=== PATIENT | female | born 1990 | race Hispanic/Latino ===

== ENCOUNTER 2017-12-17 20:51 | Day surgery (SDC) | payer SELFPAY ==
[2017-12-17 21:24] VITALS: BMI 34.9
--- NOTE | 2017-12-17 22:02 | PDOC.LDHP ---
Labor and Delivery H&P Chief complaint: other (vaginal spotting) HPI: 27 yo at 34 week who presents with some vaginal spotting and blood tinged mucus. she has has some 1/10 bilateral lower abdominal pain. it is constant and does not come and go like a contraction. no loss of fluid. normal movement. no fever or dysuria. other than one episode of mucus, patient has had no vaginal discharge. Current gestational age (weeks): 34 (1 day) Due date: 01/27/18 Dating criteria: first trimester ultrasound Grav: 2 Para: 1 OB History Details: Patient has a hx of GERD treated with ranitidine. Current complications: none Abnormal US findings: No (posterior placenta. no indication of low lying) Social history: none - Physical Exam Vital signs reviewed and normal: yes General: NAD, resting Heart: RRR Lungs: CTAB Abdomen: gravid Extremeties: no edema FHT: category 1 (Normal rate, moderate variability, several accelerations, no decelerations) [place] contractions every: none - Vaginal Exam cm dilated: 0 (visually closed. no bleeding or discharge on speculum exam. ) - OB Labs Blood type: B RH: positive Antibody Screen: negative HIV: negative RPR: negative HEPSAg: negative 1 hour GCT: negative GBS: unknown Urine drug screen: not done Rubella: immune - Assessment 1. cervical spotting- no hx of continued bleeding and no blood seen at all on speculum exam. no significant discharge on hx or exam to suggest infection. NST was reactive and there were no contractions. Likely bleeding from benign irritation vs loss of mucus plug. 2. round ligament pain- contniue tylenol as needed FU in 1 week at [facility]. <Flakito To - Last Filed: 12/17/17 23:56> <Napoleon Garcia - Last Filed: 12/18/17 07:52> Allergies/Adverse Reactions: Allergies Allergy/AdvReac Type Severity Reaction Status Date / Time No Known Allergies Allergy Verified 12/17/17 21:38 Attending Addendum - Attending Addendum Date/Time: 12/18/17 2243 I personally evaluated the patient and discussed the management with Dr. Mcknight I agree with the History, Examination, Assessment and Plan documented above with any addition or exceptions noted below. <Napoleon Garcia - Last Filed: 12/18/17 07:52>
== END 2017-12-17 22:03 | disposition home or self-care (01) ==
LOC: L&D/OP 20:51
PROVIDERS: ATTEND Obstetrics & Gynecology
DX: O26.853 Spotting complicating pregnancy, third trimester (principal); O99.89 Other specified diseases and conditions complicating pregnancy, childbirth and the puerperium; K21.9 Gastro-esophageal reflux disease without esophagitis; R10.2 Pelvic and perineal pain; Z79.899 Other long term (current) drug therapy; Z3A.34 34 weeks gestation of pregnancy
CPT/HCPCS: 99282

== ENCOUNTER 2018-01-20 05:16 | Inpatient (IN) | payer MEDICAID, OTHER, SELFPAY ==
--- NOTE | 2018-01-19 20:54 | PDOC.LDHP ---
Labor and Delivery H&P Chief complaint: scheduled section HPI: 27 yo @ 39.0wks by an 8.6wk US presents for a PLTCS 2/2 hx of LGA in prior with a 4th degree laceration. Denies contractions, VB , LOF, discharge, dysuria, n/v today. Current gestational age (weeks): 39 Due date: 01/26/18 Dating criteria: first trimester ultrasound (2) Grav: 2 Para: 1 OB History Details: , post dates induction with LGA and complication of a 4th degree laceration Current complications: other (Anemia of ) Abnormal US findings: No ([place] 76.9% 2T) Past Medical History: none Current medications: pre- vitamins Previous surgical history: none Social history: none - Physical Exam Vital signs reviewed and normal: yes General: NAD Heart: RRR Lungs: CTAB Abdomen: gravid Extremeties: no edema FHT: category 1 - OB Labs Blood type: B RH: positive Antibody Screen: negative HIV: negative RPR: negative HEPSAg: negative 1 hour GCT: negative GBS: negative Rubella: immune - Assessment L&D Assessment: scheduled primary section 27 yo @ 39wks by 8.6wk US presents for scheduled PLTCS. - Plan Plan: to OR for section -: Plan- 1.)sIUP-admit to L&D for scheduled pLTCS. Hemagram prior to and 24 hours post ordered. Ancef ordered. Pt GBS negative. Spinal anesthesia planned. [place], motrin, tylenol prn pain after delivery. 2.)Hx of LGA infant: Current [place] 76.9%. 3.)Anemia of : continue po iron, will monitor H/H before and after cs. Will provide stool softener prn. <Shelby Aguilar - Last Filed: 01/20/18 10:26> <Mike Pires - Last Filed: 01/20/18 15:05> Allergies/Adverse Reactions: Allergies Allergy/AdvReac Type Severity Reaction Status Date / Time No Known Allergies Allergy Verified 01/20/18 06:01 Attending Addendum - Attending Addendum Date/Time: 01/20/18 8342 I personally evaluated the patient and discussed the management with Dr. Medrano. I agree with the History, Examination, Assessment and Plan documented above with any addition or exceptions noted below. Plan for elective primary C/S delivery is reasonable in light of prior complicated vaginal delivery with significant pelvic trauma. R/B/A discussed thoroughly and patient & partner verbalize understanding. <Mike Pires - Last Filed: 01/20/18 15:05>
[2018-01-20] MEDS ORDERED: CEFAZOLIN/Water 2 GM/20 ML SYRINGE SLOW IVP SCH (06:00)
[2018-01-20] MEDS ORDERED: Promethazine HCl 25 MG/ML VIAL IM PRN ×2 (06:09→09:16)
[2018-01-20 06:12] VITALS: BMI 36.7
[2018-01-20] MEDS ORDERED: Bicitra 30 ML UDCUP PO SCH (06:15)
[2018-01-20] MEDS: Lactated Ringer's 1,000 ML IV SCH ×4 (06:20→19:10)
[2018-01-20 06:44] LABS: Hemoglobin 9.9 g/dL (12.0-16.0); Mean Corpuscular HGB CONC 34.3 g/dL (32.0-36.0); Mean Corpuscular Hemoglobin 31.3 pg (27.0-31.0); Mean Corpuscular Volume 91.1 fL (78.0-98.0); Mean Platelet Volume 9.6 fL (7.4-10.4); Platelet Count 170 thou/uL (130-400); RBC Distribution Width 13.8 % (11.5-14.5); Red Blood Cell (RBC) Count 3.16 mill/uL (4.20-5.40); White Blood Cell (WBC) Count 7.9 thou/uL (4.8-10.8)
[2018-01-20 07:27] LABS: Hep B Surf Ag Non-Reactive S/CO (NonReactive); Syphilis Antibody Nonreactive (Nonreactive); Syphilis Antibody Index 0.04 S/CO (<1.00 Non-Reactive)
[2018-01-20] MEDS ORDERED: Morphine PF 1 MG/ML SYR ONE (07:28)
[2018-01-20] MEDS ORDERED: Bupivacaine 0.75% W/DEXTROSE 8.25% 2 ML AMP ONE ×2 (07:29)
[2018-01-20] MEDS ORDERED: Ketorolac Tromethamine 30 MG/ML VIAL ONE ×2 (07:29→14:12)
[2018-01-20] MEDS ORDERED: Lidocaine 1% PF 5 ML VIAL ONE (07:29)
[2018-01-20] MEDS ORDERED: Oxytocin 10 UNITS/ML VIAL ONE (07:29)
[2018-01-20] MEDS ORDERED: Ondansetron HCl/PF 4 MG/2 ML Vial ONE ×2 (07:29→14:12)
[2018-01-20] MEDS ORDERED: Atropine Sulfate 0.4 mg/1 ml Vial ONE ×2 (07:50→14:12)
[2018-01-20] MEDS ORDERED: ePHEDrine/0.9% NaCl/PF SYRINGE 50 mg/10 ml ONE ×2 (07:51→14:12)
[2018-01-20] MEDS ORDERED: Adacel (T-DAP) 0.5 ML VIAL IM ONE (09:03)
[2018-01-20] MEDS ORDERED: Acetaminophen 325 MG TAB PO PRN (09:03)
[2018-01-20] MEDS ORDERED: Lanolin Ointment 7 GM TUBE TOP PRN ×2 (09:03→13:53)
[2018-01-20] MEDS ORDERED: Naloxone HCl 0.4 mg/ml Vial IV PRN (09:16)
[2018-01-20] MEDS ORDERED: Eucerin (Mineral Oil/Petrolatum,White) 30 gm Jar TOP PRN (09:16)
[2018-01-20] MEDS ORDERED: HYDROmorphone 2 MG/ML VIAL SLOW IVP PRN (09:16)
[2018-01-20] MEDS ORDERED: Promethazine HCl 25 MG SUPP PR PRN (09:16)
[2018-01-20] MEDS ORDERED: diphenhydrAMINE 50 MG/ML VIAL IVP PRN (09:16)
[2018-01-20] MEDS ORDERED: Meperidine HCl/PF 25 MG/ML VIAL SLOW IVP PRN (09:16)
[2018-01-20] MEDS ORDERED: Ketorolac Tromethamine 30 MG/ML VIAL IVP PRN (09:16)
[2018-01-20] MEDS ORDERED: Naloxone HCl 0.4 mg/ml Vial IVP PRN ×2 (09:16)
[2018-01-20] MEDS ORDERED: Ondansetron HCl/PF 4 MG/2 ML Vial IVP PRN ×2 (09:16)
[2018-01-20] MEDS ORDERED: Ketorolac Tromethamine 30 MG/ML VIAL IVP SCH (09:30)
[2018-01-20] MEDS ORDERED: Communication Order-Pharmacy FS SCH (09:30)
--- NOTE | 2018-01-20 10:29 | PDOC.OPDEL ---
OB Operative/Delivery Note Delivery Dr/Surgeon: Jeff Medrano; Attending: Dr. Lovell Assist: Dr. Domenico Curran Pre-Delivery Diagnosis: scheduled section Procedure/Post Delivery Dx: primary low transverse CS Weeks gestation: 39 Anesthesia: spinal - Findings A Sex: male Weight: 3.742 kg (8 lbs 4 ounces) - 1 min: 9 - 5 min: 9 - Additional Findings/Plan Placenta delivered: spontaneous findings: low transverse hysterotomy without extension, normal ovaries Estimated blood loss: 1580 Compilations/Other Findings: Procedure Note Date of Procedure: 01/20/18 Resident Surgeon: Dr. Jeff Medrano Home Care Chaplain Surgeon: Dr. Domenico Curran Attending Surgeon: Dr. Pires Procedure: Primary low transverse section Preoperative Diagnosis: 1)Term intrauterine 2) Anemia of Postoperative Diagnosis: 1)Term intrauterine 2)Anemia of Anesthesia: spinal Indications: The patient is a 27 year old female at 39 weeks gestation who presents for a primary scheduled . Procedure in Detail: After risks, benefits, and alternatives were explained to the patient, she gave informed consent. Pre-operative antibiotics included Cefazolin 2 gram IV. The patient was taken to the operating room and spinal anesthesia was initiated. She was placed in the supine position with a left tilt and prepped and draped in usual sterile fashion. A Pfannenstiel incision was made with a scalpel and carried down to the level of the fascia which was sharply nicked. The fascial cut was extended bilaterally with [place] sissors. The inferior and superior edges of the cut fascial edges were elevated with Geovanni clamps and the underlying rectus muscles were sharply and bluntly dissected free. The recti were divided digitally and retracted manually. The peritoneum was entered bluntly and retracted manually. Bladder blade was placed. Bladder flap was created with Metzenbaum scissors. A low transverse score was made with the scalpel and the uterus was entered in the midline with the scalpel. Clear fluid was seen. The hysterotomy was extended manually. The infant was noted to be vertex but did require vacuum assisted delivery. was delivered with first attempt of vacuum. No pop offs noted. Mouth and nares were bulb suctioned. Cord clamped and cut and grossly normal male was handed to waiting nurse. Cord blood was obtained. Placenta was spontaneously extracted, found to be intact with 3 vessel cord and discarded. The uterus was externalized and the endometrium was curetted with a dry lap. The bladder blade was replaced and the uterus was closed with a running locking #1 Monocryl followed by a running non-locking #1 monocryl vertical imbricating suture. A single figure of eight stitch was placed using a #1 Monocryl suture. Following this hemostasis was noted. The uterus was internalized and the hysterotomy was again noted to be hemostatic. The fascia was closed with a running non-locking 0-PDS suture. The subcutaneous fat was closed with a running non-locking 2-0 plain gut suture. The skin was approximated with elias and a pressure dressing was placed. All counts were correct. The patient tolerated the procedure well and was taken to the recovery room in stable condition. Estimated Blood Loss: 1580 ml Complications: None Specimens: Cord blood sent to lab for blood type Findings: Grossly normal male with Apgars of 9 and 9. Grossly normal placenta with 3 vessel cord discarded. Drains: Nunn to gravity draining clear urine Post delivery plan: recovery in LICU <Shelby Aguilar - Last Filed: 01/21/18 08:04> Delivery Dr/Surgeon: Jeff Medrano; Attending: Dr. Pires <Mike Pires - Last Filed: 01/21/18 14:08> Attending Addendum - Attending Addendum Date/Time: 01/21/18 5243 Agree with and assisted with above. [place] primary LT C/S with no complications. <Mike Pires - Last Filed: 01/21/18 14:08>
--- NOTE | 2018-01-20 13:33 | PDOC.EVN ---
Event Note - Event Note Event Note: 01/20/18 @ 1315 Pt is feeling well after the , just fatigued. She has some left-sided pain over the incision that is 3/10. Denies any nausea or vomiting. Gaining feeling back in her legs. Denies any headache, changes in vision, chest pain. Nunn is draining clear yellow urine. ROS: Feeling fatigued. denies headache, changes in vision, denies nausea or vomiting. T 99.1. BP 104/55. P 97 HEENT: Face looks pale. Conjunctiva pale. Abd: Fundus is below the umbilicus, firm, appropriately tender. Minimal lochia. Heart: RRR, no murmurs, rubs, or gallops Lungs: Bilaterally clear to auscultation Ext: no edema in lower extremities. Pulses 2+ bilat in upper and lower extremities. Plan- continue routine care. Repeat HH now. Bolus with 500 LR. <Aixa West - Last Filed: 01/20/18 13:53> Attending Addendum - Attending Addendum Date/Time: 01/20/18 0616 I personally evaluated the patient and discussed the management with Dr. West I agree with the Examination, Assessment and Plan documented above. <Mike Pires - Last Filed: 01/20/18 15:17>
[2018-01-20] MEDS ORDERED: HYDROcodone/Acetaminophen 5/325 mg Tablet PO PRN (13:53)
[2018-01-20] MEDS ORDERED: Simethicone Chewable 80 MG TAB PO PRN (13:53)
[2018-01-20] MEDS ORDERED: Ibuprofen 800 MG TAB PO SCH (14:00)
[2018-01-20] MEDS ORDERED: Lactated Ringer's 500 ML IV SCH (14:00)
[2018-01-20 14:12] LABS: Hemoglobin 8.4 g/dL (12.0-16.0)
--- NOTE | 2018-01-20 18:35 | PDOC.EVN ---
Event Note - Event Note Event Note: 01/20/18 @ 15:00 Went to evaluate patient after report that she had an episode where her oxygen saturation dropped into 80's but quickly and spontaneously returned to normal. She states that she feels fatigued and dizzy with positional changes, particularly when going from a position of lying flat to sitting straight up. She has yet to walk or eat. She denies any headaches, vision changes, abdominal pain, or excessive vaginal bleeding. She states that her vaginal bleeding is "light". ROS: Endorses fatigue. Denies headache, changes in vision, denies nausea or vomiting. T 99.1. BP 100/55. P 83, RR 20 HEENT: Pale conjunctiva. Abd: Fundus is below the umbilicus, firm, appropriately tender. Minimal lochia. Heart: RRR, no murmurs, rubs, or gallops Lungs: Bilaterally clear to auscultation Ext: no edema in lower extremities. Pulses 2+ bilat in upper and lower extremities. Plan: Continue routine care. H&H 8.4/24.5 4 hours PP. Repeat H&H in AM. Monitor for signs and symptoms of anemia. Check on patient again in 4 hours. LR bolus if needed.
[2018-01-20] MEDS: Ibuprofen 800 MG TAB PO SCH ×2 (20:29→21:38)
[2018-01-20] MEDS: Prenatal Vitamin 1 TAB PO SCH (20:30)
[2018-01-20] MEDS ORDERED: Docusate Calcium (SURFAK) 240 MG CAP PO SCH (21:00)
[2018-01-20] MEDS: Docusate Calcium (SURFAK) 240 MG CAP PO SCH (21:37)
[2018-01-20] MEDS: Ferrous Sulfate 325 MG TAB PO SCH (21:37)
[2018-01-21] MEDS: Lactated Ringer's 1,000 ML IV SCH (05:30)
[2018-01-21] MEDS: Ibuprofen 800 MG TAB PO SCH ×3 (06:04→21:37)
[2018-01-21] MEDS ORDERED: Ondansetron HCl/PF 4 MG/2 ML Vial IVP PRN (06:08)
[2018-01-21 06:19] LABS: Hemoglobin 7.2 g/dL (12.0-16.0); Mean Corpuscular HGB CONC 34.2 g/dL (32.0-36.0); Mean Corpuscular Hemoglobin 31.4 pg (27.0-31.0); Mean Corpuscular Volume 91.7 fL (78.0-98.0); Mean Platelet Volume 9.8 fL (7.4-10.4); Platelet Count 135 thou/uL (130-400); RBC Distribution Width 13.9 % (11.5-14.5); Red Blood Cell (RBC) Count 2.29 mill/uL (4.20-5.40)
[2018-01-21] MEDS ORDERED: Ferrous Sulfate 325 MG TAB PO SCH (08:00)
[2018-01-21] MEDS ORDERED: Sodium Chloride 0.9% 500 ML IV SCH (08:00)
--- NOTE | 2018-01-21 08:11 | PDOC.PP ---
Post Progress Note Post Day #: 1 Subjective: 27 yo now 2001 s/p primary LTCS yesterday 2/2 hx of LGA and fourth degree tear. POD #1 Doing well. Complaining of mild pain PO intake tolerated: yes Flatus: no Ambulation: yes Vital Signs (12 hours) Temp Pulse Resp BP Pulse Ox 01/21/18 07:51 100.0 F H 89 18 96/55 L 01/21/18 04:19 98.4 F 95 18 108/53 L 97 01/21/18 00:05 98.5 F 87 18 84/52 L 95 01/20/18 20:37 98.3 F 83 20 Weight Weight 97.069 kg - Physical Examination General: NAD Cardiovascular: no m/r/g, RRR Respiratory: clear to auscultation bilaterally, non-labored breathing Abdominal: lochia (minimal), appropriately TTP Fundus firm & at: -1 Skin: CS incision dry & intact, no rash Neurological: no gross focal deficits Psychiatric: A&Ox3, normal affect Result Diagrams: 01/21/18 05:58 Additional Labs: Post Labs Blood Type B POSITIVE 01/20/18 06:31 Hep Bs Antigen Non-Reactive S/CO (NonReactive) 01/20/18 06:32 (1) Status: Acute (2) delivery due to previous difficult delivery, delivered, current hospitalization Code(s): O99.89 - OTH DISEASES AND CONDITIONS COMPL PREG/CHLDBRTH; Z87.59 - PERSONAL HISTORY OF COMP OF PREG, CHLDBRTH AND THE PUERP Status: Acute (3) Anemia affecting Code(s): O99.019 - ANEMIA COMPLICATING , UNSPECIFIED TRIMESTER Status : Acute (4) History of fourth degree perineal laceration Code(s): Z87.59 - PERSONAL HISTORY OF COMP OF PREG, CHLDBRTH AND THE PUERP Status: Acute - Assessment/Plan 27 yo now 2001 @ 39wks presented yesterday for scheduled cs now s/p primary LTCS 2/2 hx of LGA infant and fourth degree laceration (2012). POD #1 1.)sIUP, delivered via pLTCS- -Pt with EBL 1580 after surgery -~50cc overnight; endorses scant bleeding -VSS; initially tachycardic overnight but doing well this morning with mild hypotension this am -LR 125 ml/hr ordered but line leaking; discussed pushing PO fluids. If tachycardia returns, restart IV -gonzalez pulled; uop is adequate -endorses eating crackers; recommended liquid diet and pt states she hasn't passed flatus yet. -pt has ibuprofen 800mg TID for pain with norco and tylenol prn breakthrough pain -incision is clean dry and intact, continue to monitor -hb dropped from 9.4-7.2; will recheck tomorrow am. Plan to restart PO iron bid. Will discharge patient on PO iron. 2.)Hx of anemia of - -Hb dropped from 9.4-7.2. Will recheck tomorrow am, restart po iron and recheck ~3 wks for improvement. 3.)Hx of LGA infant and 4th degree perineal laceration in prior delivery. dispo: consider discharge 48-72 hours <Shelby Aguilar - Last Filed: 01/21/18 08:09> Vital Signs (12 hours) Temp Pulse Resp BP Pulse Ox 01/21/18 12:00 98.5 F 85 20 01/21/18 11:41 98.5 F 85 20 98/55 L 01/21/18 08:10 98.5 F 85 20 01/21/18 07:51 100.0 F H 89 18 96/55 L 01/21/18 04:19 98.4 F 95 18 108/53 L 97 Weight Weight 97.069 kg Result Diagrams: 01/21/18 05:58 Additional Labs: Post Labs Blood Type B POSITIVE 01/20/18 06:31 Hep Bs Antigen Non-Reactive S/CO (NonReactive) 01/20/18 06:32 <Mike Pires - Last Filed: 01/21/18 14:13> Attending Addendum - Attending Addendum Date/Time: 01/21/18 1410 I personally evaluated the patient and discussed the management with [] Doing well POD #1. Has acute operative blood loss superimposed on chronic anemia of . Exam is normal, wound looks great. No ongoing blood loss. Recheck H/H this afternoon, hold x-fusion unless hb less than 7.0 and/or symptoms referable to anemia develop. <Mike Pires - Last Filed: 01/21/18 14:13>
[2018-01-21] MEDS: Ferrous Sulfate 325 MG TAB PO SCH ×2 (10:11→21:37)
[2018-01-21] MEDS: HYDROcodone/Acetaminophen 5/325 mg Tablet PO PRN ×2 (10:11→16:19)
[2018-01-21] MEDS: Docusate Calcium (SURFAK) 240 MG CAP PO SCH ×2 (10:11→21:37)
[2018-01-21] MEDS: Prenatal Vitamin 1 TAB PO SCH (10:11)
[2018-01-21] MEDS ORDERED: Ibuprofen 800 MG TAB PO SCH (14:00)
[2018-01-21 16:05] LABS: Hemoglobin 7.5 g/dL (12.0-16.0)
[2018-01-22] MEDS: Ibuprofen 800 MG TAB PO SCH ×2 (06:04→13:13)
--- NOTE | 2018-01-22 06:52 | PDOC.PP ---
Post Progress Note Post Day #: 2 Subjective: 27 yo now 2001 @ 39wks presented for scheduled cs now s/p primary LTCS, POD #2. She says her dizziness has improved. She still gets dizzy after standing /walking around for about 10 minutes. She wants to go home today if she can, planning to stay with her mother. Hgb dropped to 6.8 this morning. Eating and drinking well, passing flatus, ambulating. Pain is 4/10, better with [place] (it' s been about 7 hrs since she had her last dose), on scheduled IBP 800 mg. She is planning on using condoms for control, like they did for the past 5 years. PO intake tolerated: yes Flatus: yes Ambulation: yes Vital Signs (12 hours) Temp Pulse Resp BP Pulse Ox 01/22/18 04:04 97.9 F 77 20 95/50 L 97 01/22/18 04:00 98.4 F 80 18 01/22/18 00:27 98.4 F 80 18 98/52 L 97 01/21/18 20:40 98.5 F 89 18 103/59 L 95 Weight Weight 97.069 kg - Physical Examination General: NAD Cardiovascular: no m/r/g, RRR Respiratory: clear to auscultation bilaterally, non-labored breathing Abdominal: + bowel sounds, lochia (minimal), no distention, appropriately TTP Fundus firm & at: below umbilicus Skin: CS incision dry & intact, no rash Psychiatric: A&Ox3, normal affect Result Diagrams: 01/22/18 06:51 Additional Labs: Post Labs Blood Type B POSITIVE 01/20/18 06:31 Hep Bs Antigen Non-Reactive S/CO (NonReactive) 01/20/18 06:32 - Assessment/Plan 27 yo now 2001 @ 39wks presented for scheduled cs now s/p primary LTCS, POD #2 1.)sIUP, delivered via pLTCS -Pt with QBL 1580 after surgery -VSS; initially tachycardic not tachycardic now -Passing flatus, no BM yet -Voiding well, eating and drinking well, ambulating -Pain control: currently 4/10; pt has ibuprofen 800mg TID for pain with norco and tylenol prn breakthrough pain. Took [place] last night, about 7 hrs ago, says pain improved with norco. -incision is clean dry and intact, continue to monitor. Fundus firm and below the umbilicus, appropriately TTP -hb dropped initially from 9.4 to 7.2, then improved to 7.5 yesterday. 6.8 today. 1 unit transfusion blood today, get post transfusion H&H. Restarted PO iron bid. Will discharge patient on PO iron. -Follow up in 5-7 days (Tuesday, or next tuesday) at [facility] to get elias removed. control: plans to use condoms, which have worked well for them in the past 2.) hemorrage (QBL 1580 ml) -Hb now 6.8. 1 unit blood transfusion this morning. F/up 4 hr post transfusion H&H. If improved, she can be discharged today. - Minimal lochia - Uterine fundus firm, below umbilicus, appropriately TTP - restart po iron and recheck ~3 wks for improvement. 3.)Hx of LGA infant and 4th degree perineal laceration in prior delivery. <Aixa West - Last Filed: 01/22/18 10:25> Vital Signs (12 hours) Temp Pulse Pulse Resp BP BP Pulse Ox 01/22/18 12:31 98.7 F 86 18 01/22/18 11:08 98.7 F 86 18 100/55 L 100 01/22/18 08:40 98.9 F 20 98/51 L 98 01/22/18 08:09 98.5 F 85 17 99/52 L 97 01/22/18 08:00 98.9 F 81 20 98 01/22/18 04:04 97.9 F 77 20 95/50 L 97 01/22/18 04:00 98.4 F 80 18 Weight Weight 97.069 kg Result Diagrams: 01/22/18 06:51 Additional Labs: Post Labs Blood Type B POSITIVE 01/20/18 06:31 Hep Bs Antigen Non-Reactive S/CO (NonReactive) 01/20/18 06:32 <Mike Pires - Last Filed: 01/22/18 13:45> Attending Addendum - Attending Addendum Date/Time: 01/22/18 1341 I personally evaluated the patient and discussed the management with Dr. West. I agree with the Examination, Assessment and Plan documented above with any addition or exceptions noted below. Wound looks great. No erythema, induration or drainage. No calf tenderness. Currently receiving 1 unit PRBC for Hb 6.8. Not terribly symptomatic. Recommend home on Fe, Detailed wound care instructions and f/u for wound check and staple removal. <Mike Pires - Last Filed: 01/22/18 13:45>
[2018-01-22 07:25] LABS: Hemoglobin 6.8 g/dL (12.0-16.0)
[2018-01-22] MEDS: Prenatal Vitamin 1 TAB PO SCH (08:50)
[2018-01-22] MEDS: Ferrous Sulfate 325 MG TAB PO SCH (08:50)
[2018-01-22] MEDS: Docusate Calcium (SURFAK) 240 MG CAP PO SCH (08:50)
[2018-01-22 11:09] VITALS: BP 100/55; TEMP 98.7
[2018-01-22 15:00] LABS: Hemoglobin 8.2 g/dL (12.0-16.0)
== END 2018-01-22 17:50 | disposition home or self-care (01) | DRG 765 ==
LOC: L&D 05:16 → 3SE 13:37
PROVIDERS: ADMIT Emergency Medicine; ATTEND Emergency Medicine
PROC: 10D00Z1 Extraction of Products of Conception, Low, Open Approach (ICD-10-PCS; principal; 2018-01-20)
PROC: 30233N1 Transfusion of Nonautologous Red Blood Cells into Peripheral Vein, Percutaneous Approach (ICD-10-PCS; 2018-01-22)
DX: O99.02 Anemia complicating childbirth (principal); O72.1 Other immediate postpartum hemorrhage; D64.9 Anemia, unspecified; Z3A.39 39 weeks gestation of pregnancy; Z37.0 Single live birth
CPT/HCPCS: 36415; 36430; 51702; 85014; 85018; 85027; 86780; 86850; 86900; 86901; 87340; A4216; J0461; J1885; J2001; J2274; J2405; J2590; J3490; P9016

== ENCOUNTER 2018-09-30 12:15 | Emergency (ER) | payer MEDICAID, SELFPAY | END 2018-09-30 13:05 | disposition home or self-care (01) | LOC: ERS 12:15 | DX: H10.023 Other mucopurulent conjunctivitis, bilateral (principal) | CPT/HCPCS: 99282 ==